=== PATIENT | female | born 1945 | race Caucasian/White ===

== ENCOUNTER 2018-08-11 15:57 | Outpatient (REF) | payer MEDICARE, BC, SELFPAY ==
--- NOTE | 2018-08-11 14:30 | PAPFT_PTH ---
PATIENT: Gwendolyn Scott [id number] AGE/SX: 73/F ROOM: RE08/11/[address]: Crystal Maza : 1945 BED: DIS: 08/11/2018 SPEC #: [id number] RECD: 08/12/18 12:58 STATUS: GLENROY SHERMAN #: [id number] TIFFANY: 08/11/18 14:[address]: Crystal Maza DEPT: [facility] Cytology RECD BY: Nura Pastor Tissues: 1 - CX/ENDOCX FOR PAP SMEARS Procedures: PAP THIN PREP/[facility] Screening Comments: [id number]
== END 2018-08-11 16:17 ==
LOC: NCHCN 15:57
PROVIDERS: PCP Internal Medicine; Referring Provider Nurse Practitioner Family; Visit Provider Nurse Practitioner Family
DX: R10.2 Pelvic and perineal pain (principal); Z12.4 Encounter for screening for malignant neoplasm of cervix
CPT/HCPCS: 88142; 87086

== ENCOUNTER 2019-04-21 14:26 | Outpatient (REF) | payer MEDICARE, BC, SELFPAY ==
[2019-04-21 21:33] LABS: TSH 0.98 uIU/mL (0.358-3.74); Vitamin B12 715 pg/mL (193-986)
[2019-04-26 15:54] LABS: 1,25-Dihydroxyvitamin D 58 pg/mL (18-78)
== END 2019-04-21 14:46 ==
LOC: NCHCN 14:26
PROVIDERS: PCP Internal Medicine; Visit Provider Nurse Practitioner Psychiatric/Mental Health
DX: E55.9 Vitamin D deficiency, unspecified (principal); F39 Unspecified mood [affective] disorder
CPT/HCPCS: 82607; 82652; 84443

== ENCOUNTER 2021-04-24 16:03 | Outpatient (REF) | payer MEDICARE, BC, SELFPAY ==
[2021-04-24 19:23] LABS: Bilirubin Negative (Negative); Blood Trace-intact (Negative); Clarity Clear (Clear); Glucose Negative (Negative); Ketones Negative (Negative); Leukocyte Esterase Negative (Negative); Nitrite Negative (Negative); Specific Gravity 1.015 (1.005-1.025); Urobilinogen 0.2 EU/dL (Up TO 0.2); pH 6.5 (5-8)
[2021-04-24 20:01] LABS: Epithelial Cells Many HPF (Negative); RBC Negative HPF (0-2); WBC Negative HPF (0-5)
[2021-04-24 20:02] LABS: Bacteria Moderate HPF (Negative); C & S Indicated? No/Sq. Contamination; Casts Negative LPF (Negative); Crystals Negative HPF (Negative); Mucus Negative (Negative)
== END 2021-04-24 16:04 | disposition home or self-care (01) ==
LOC: NCHCN 16:03
PROVIDERS: PCP Internal Medicine; Visit Provider Nurse Practitioner Family
DX: R31.29 Other microscopic hematuria (principal)
CPT/HCPCS: 81003; 81015; 87480; 87510; 87660

== ENCOUNTER 2022-01-24 16:17 | Outpatient (REF) | payer MEDICARE, BC, SELFPAY ==
[2022-01-24 19:18] LABS: ESR 14 mm/hr (0-30)
[2022-01-24 19:50] LABS: ALT 15 U/L (14-59); AST 14 U/L (15-37); Albumin 3.9 g/dL (3.4-5.0); Alkaline Phosphatase 91 U/L (46-116); Anion Gap 11.3 mmol/L (3-11); BUN 15 mg/dL (7-18); Bilirubin, Total 0.4 mg/dL (0.2-1.0); C-Reactive Protein 0.13 mg/dL (0.0-0.3); CO2 23.7 mmol/L (21.0-32.0); CREATININE 0.8 mg/dL (0.55-1.02); Chloride 103 mmol/L (98-107); Glucose 98 mg/dL (74-106); Potassium 4.1 mmol/L (3.5-5.1); Sodium 138 mmol/L (136-145); Total Protein 7.5 g/dL (6.4-8.2)
[2022-01-24 20:56] LABS: Ferritin 208 ng/mL (8-252); Vitamin B12 385 pg/mL (193-986)
[2022-01-24 21:14] LABS: Iron 113 ug/dL (50-170); Total Iron Binding Capacity 324 ug/dL (250-450); Transferrin Sat 35 % (15-50)
== END 2022-01-24 16:18 | disposition home or self-care (01) ==
LOC: NCHCN 16:17
PROVIDERS: PCP Internal Medicine; Visit Provider Physician Assistant
DX: M25.511 Pain in right shoulder (principal)
CPT/HCPCS: 80053; 85652; 82607; 82728; 83540; 83550; 86140

== ENCOUNTER 2022-04-17 14:11 | Outpatient (REF) | payer MEDICARE, BC, SELFPAY ==
[2022-04-23 07:29] LABS: 2-OH-Ethyl-Flurazepam Negative ng/mL (Cutoff: 10); 7-NH-Clonazepam 248 ng/mL (Cutoff: 10); 7-NH-Flunitrazepam Negative ng/mL (Cutoff: 10); Alpha OH-Alprazolam Negative ng/mL (Cutoff: 10); Alpha-OH Midazolam Negative ng/mL (Cutoff: 10); Alpha-OH-Triazolam Negative ng/mL (Cutoff: 10); Alprazolam Negative ng/mL (Cutoff: 10); Benzodiazepines Interpretation Positive.; Chlordiazepoxide Negative ng/mL (Cutoff: 10); Clobazam Negative ng/mL (Cutoff: 10); Clonazepam Negative ng/mL (Cutoff: 10); Diazepam Negative ng/mL (Cutoff: 10); Flurazepam Negative ng/mL (Cutoff: 10); Lorazepam Negative ng/mL (Cutoff: 10); Midazolam Negative ng/mL (Cutoff: 10); N-Desmethylclobazam Negative ng/mL (Cutoff: 10); Prazepam Negative ng/mL (Cutoff: 10); Temazepam Negative ng/mL (Cutoff: 10); Triazolam Negative ng/mL (Cutoff: 10); Zolpidem Carboxylic acid Negative ng/mL (Cutoff: 10)
== END 2022-04-17 14:12 | disposition home or self-care (01) ==
LOC: NCHCN 14:11
PROVIDERS: PCP Internal Medicine; Visit Provider Physician Assistant
DX: F41.1 Generalized anxiety disorder (principal); Z51.81 Encounter for therapeutic drug level monitoring
CPT/HCPCS: 80346

== ENCOUNTER 2023-08-06 20:03 | Outpatient (REF) | payer MEDICARE, BC, SELFPAY | END 2023-08-06 20:04 | disposition home or self-care (01) | LOC: NCHCN 20:03 | PROVIDERS: PCP Internal Medicine; Visit Provider Physician Assistant | DX: N39.0 Urinary tract infection, site not specified (principal); R82.79 Other abnormal findings on microbiological examination of urine | CPT/HCPCS: 87077; 87086; 87186 ==

== ENCOUNTER 2023-10-02 14:11 | Outpatient (REF) | payer MEDICARE, BC, SELFPAY ==
[2023-10-02 19:56] LABS: HCT 44.2 % (36.0-46.0); HGB 14.3 g/dL (11.2-15.7); MCH 27.9 pg (27.0-33.0); MCHC 32.4 % (32.0-36.0); MCV 86 fL (80-95); MPV 8.9 fL (8.0-11.0); Platelet Count 330 10^3/uL (130-400); RBC 5.12 10^6/uL (3.93-5.22); RDW 13.2 % (11.7-14.6); RDW-SD 41.3 fL; WBC 8.78 10^3/uL (4.4-10.8)
[2023-10-02 20:16] LABS: ALT 20 U/L (14-59); AST 23 U/L (15-37); Albumin 3.7 g/dL (3.4-5.0); Alkaline Phosphatase 80 U/L (46-116); BUN 15 mg/dL (7-18); Bilirubin, Total 0.2 mg/dL (0.2-1.0); CREATININE 0.7 mg/dL (0.55-1.02); Calcium 9.4 mg/dL (8.5-10.1); Chloride 107 mmol/L (98-107); Estimated GFR 89.02 (mL/min/1.73m2); Glucose 111 mg/dL (74-106); Sodium 140 mmol/L (136-145); Total Protein 7.8 g/dL (6.4-8.2)
== END 2023-10-02 14:12 | disposition home or self-care (01) ==
LOC: NCHCN 14:11
PROVIDERS: PCP Internal Medicine; Visit Provider Physician Assistant
DX: E78.5 Hyperlipidemia, unspecified (principal); K21.9 Gastro-esophageal reflux disease without esophagitis; F41.1 Generalized anxiety disorder
CPT/HCPCS: 80053; 85027

== ENCOUNTER 2024-03-24 14:39 | Outpatient (REF) | payer MEDICARE, BC, SELFPAY ==
[2024-03-24 21:57] LABS: HCT 44.9 % (36.0-46.0); HGB 14.3 g/dL (11.2-15.7); MCH 27.7 pg (27.0-33.0); MCHC 31.8 % (32.0-36.0); MCV 87 fL (80-95); MPV 8.9 fL (8.0-11.0); Platelet Count 370 10^3/uL (130-400); RBC 5.16 10^6/uL (3.93-5.22); RDW 13.5 % (11.7-14.6); RDW-SD 42.9 fL; WBC 7.37 10^3/uL (4.4-10.8)
[2024-03-24 22:43] LABS: Hemoglobin A1C 5.7 % (<5.7); TSH 1.49 uIU/Ml (0.36-3.74); Vitamin B12 673 pg/mL (193-986)
[2024-03-24 22:45] LABS: Folate > 20.0 ng/mL (8.6-20.0)
[2024-03-24 23:35] LABS: Vitamin D 25 Total 22.4 ng/mL (30-100)
== END 2024-03-24 14:40 | disposition home or self-care (01) ==
LOC: NCHCN 14:39
PROVIDERS: PCP Internal Medicine; Visit Provider Internal Medicine
DX: R63.4 Abnormal weight loss (principal); R42 Dizziness and giddiness
CPT/HCPCS: 80186; 82306; 85027; 82607; 82746; 83036; 84443

== ENCOUNTER 2024-12-22 15:33 | Outpatient (REF) | payer MEDICARE, BC, SELFPAY ==
--- OUTSIDE RECORDS SUMMARY | 2024-12-22 15:38 | XMS_ITS | Clinical Summary ---
Author Organization [facility] Address [address] [place] [address] Care Team Providers Care Fire Suppression Captain Name Role Phone Dylon Man MD Primary Care Provider [phone] Social History Tobacco Use Types Packs/Day Years Used Date Smoking Tobacco: Never Assessed Interpersonal Safety Answer Date Record ed Physically Hurt Never 06/25/2020 Verbally Threaten Not on file 06/25/2020 Comments Unknown Sex and Gender Information Value Date Recorded Sex Assigned at Not on file Legal Sex Female 18:03 EST Gender Identity Not on file Sexual Orientation Not on file Plan of Treatment Health Maintenance Due Date Last Done Comments Hepatitis C Screen 1945 Fall Risk Screening 2011 RSV Immunization ( o r 60+ Years) (1 - 1-dose 75+ series) 2021 COVID-19 Vaccine ( season) 2024 Care Teams Fire Suppression Captain Relationship Specialty Start Date End Date Dylon Man MD [address] [place] [address] PCP - General 12/04/10
--- OUTSIDE RECORDS SUMMARY | 2024-12-22 15:38 | XMS_ITS | Encounter Summary ---
Author Organization [facility] Address [address] [place] [address] Care Team Providers Care Assistant Field Hockey Coach Name Role Phone Dylon Man MD Primary Care Provider [phone] Encounter Details Date Type Department Care Team (Late st Contact Info) Description 05/15/2015 Results Only [facility] [phone] Jayne Dotson MD [address] [place] [address] [address] [place], [place] [id number] Social History Tobacco Use Types Packs/Day Years Used Date Smoking Tobacco: Never Assessed Comments Unknown Sex and Gender Information Value Date Recorded Sex Assigned at Not on file Legal Sex Female 18:03 EST Gender Identity Not on file Sexual Orientation Not on file documented as of this encounter Plan of Treatment Not on file documented as of this encounter Procedures Procedure Name Priority Date/Time Associated Diagnosis Comments SURGICAL PATHOLOGY Routine 05/15/2015 8:58 EDT documented in this encounter Results * SURGICAL PATHOLOGY (05/15/2015 8:58 EDT) Pathology Report: SURGICAL PATHOLOGY REPORT Reports generated via electronic interface contain original data; however they are lacking the format of the original report. Caution should be taken when reading/interpret ing unformatted reports. Name: ? DAMION SUMNER ? Accession #: ? [id number] ? : ? 1945 (Age: 70) ??F ? Collect Date: ? 05/15/2015 ? Location: ? [facility] ? Receive Date: ? 05/16/2015 ? Provider: JAYNE DOTSON MD Copy to: ? Final Pathologic Diagnosis: ENDOMETRIUM, BIOPSY: - ??Endometrial polyp, hyperplastic type. - ??No cytologic atypia identified. Document reviewed and electronically signed by: GILBERT RIBERA MD Report ??Date: 05/17/2015 16:20 By the signature above, the attending physician certifies that he/she has personally conducted a gross and/or microscopic examination of the described specimens and rendered or confirmed the above diagnosis. Specimen(s) Received: Endometrium Clinical History: Thickened endometrium; postmenopausal bleeding Gross Description: ? Received in formalin labelled with proper patient identification (initials G, L) and endometrium is an aggregate of alejandro, focally light brown tissue admixed with a small amount of clear viscous material (2.0 x 1.0 x 0.2 cm). Submitted in toto in 1. Piotr Escobar 05/16/2015 11:55 AM End of Report [facility] 05/15/2015 8:58 EDT 05/16/2015 8:58 EDT us Jayne Dotson MD PATHOLOGY ORDERABLES Final Resul t [facility] [address] [place] [address] documented in this encounter Visit Diagnoses Not on filedocumented in this encounter Care Teams Assistant Field Hockey Coach Relationship Specialty Start Date End Date Dylon Man MD [address] [place] [address] PCP - General 12/04/10 documented as of this encounter
--- OUTSIDE RECORDS SUMMARY | 2024-12-22 15:38 | XMS_ITS | Encounter Summary ---
Author Organization [facility] Address [address] [place] [address] Care Team Providers Care Court Reporter Name Role Phone Unavailable Primary Care Provider Unavailabl e Encounter Details Date Type Department Care Team (Late st Contact Info) Description 02/07/2003 Results Only [facility] - Maple conversion [address] [place] [address] Jayne Dotson MD [address] [place] [address] [address] [place] [address] Social History Tobacco Use Types Packs/Day Years [...] Procedure Name Priority Date/Time Associated Diagnosis Comments CYTOPATHOLOGY Routine 02/07/2003 0:00 EST documented in this encounter Results * CYTOPATHOLOGY (02/07/2003 0:00 EST) Pathology Report: CYTOPATHOLOGY REPORT Reports generated via electronic interface contain original data; however they are lacking the format of the original report. Caution should be taken when reading/interpreti ng unformatted reports. Name: ? DAMION SUMNER ? Accession #: ? [id number] : ? 1945 (Age: 57) ??F ?Collect Date: ? 02/07/2003 Location: ? [facility] ? Receive Date: ? 02/09/2003 Provider: ?JAYNE DOTSON MD Copy to: ? Specimen/Source: ?ThinPrep Pap Test, Cervix/Endocervix Last Menstrual Period: ? age 49 Hormonal/Contracep tive Status: ? Yes Other: ? HPVA - HPV testing requested if ASC-US on the current ThinPrep Pap test. ? SPECIMEN ADEQUACY ? Satisfactory for Evaluation - transformation zone component present GENERAL CATEGORIZATION ? Negative for Intraepithelial Lesion or Malignancy ? Document reviewed and electronically signed by: ? Go Tate, ALEA(ASCP) ? Report Date: ??02/11/2003 13:37 End of Report [facility] 02/07/2003 02/09/2003 us Jayne Dotson MD PATHOLOGY ORDERABLES Final Resul t [facility] [address] [place] [address] documented in this encounter Visit Diagnoses Not on filedocumented in this encounter
--- OUTSIDE RECORDS SUMMARY | 2024-12-22 15:38 | XMS_ITS | Encounter Summary ---
Author Organization [facility] Address [address] [place] [address] Care Team Providers Care Circular Stuffer Name Role Phone Unavailable Primary Care Provider Unavailabl e Encounter Details Date Type Department Care Team (Late st Contact Info) Description 10/27/2009 Orders Only [facility] Laboratory Services - [facility] ([facility] [place] [address] [place] [address] Juliocesar Dotson MD [address] [place] [address] [address] [place] [address] Social History Tobacco Use Types [...] Procedure Name Priority Date/Time Associated Diagnosis Comments HPV DETECTION, HIGH RISK TYPES Routine 10/27/2009 16:38 EST CYTOPATHOLOGY Routine 10/27/2009 0:00 EST documented in this encounter Results * HUMAN PAPILLOMA VIRUS DNA TEST (10/27/2009 16:38 EST) Specimen Description Cervix, ThinPrep vial [facility] Result Negative for HPV types 16, 18, 31, 33, 35, 39, 45, 51, 52, 56, 58, 59, and 68. [facility] Report Status Final 11/15/2009 [facility] 10/27/2009 16:3 8 EST 11/06/2009 16:38 EST us Juliocesar Dotson MD MICROBIOLOGY - GENERAL ORDERABLE S Final Result [facility] [address] [place] [address] * CYTOPATHOLOGY (10/27/2009 0:00 EST) Pathology Report: CYTOPATHOLOGY REPORT ? Reports generated via electronic interface contain original data; ? however they are lacking the format of the original report. ? Caution should be taken when reading/interpreti ng unformatted reports. ? Name: ? DAMION SUMNER ? Accession #: ? [id number] ? : ? 1945 (Age: 64) ??F ?Collect Date: ? 10/27/2009 ? Location: ? [facility] ? Receive Date: ? 10/30/2009 ? Provider: ?PETER CHENTE MD ? Copy to: ? Specimen/Source: ?Pap Test, Cervix/Endocervix, ThinPrep Imaging System ? with manual evaluation ? Last Menstrual Period: ? 1996 ? Other: ? HPVDX - HPV testing requested regardless of diagnosis on current ThinPrep Pap ?? test. ? SPECIMEN ADEQUACY ? Satisfactory for Evaluation ? - transformation zone component present ? - scant squamous epithelial component secondary to excessive blood ? GENERAL CATEGORIZATION ? Negative for Intraepithelial Lesion or Malignancy ? Document reviewed and electronically signed by: ? Jordan Claros, MD ? Report Date: ??11/06/2009 11:34 ? End of Report ? [facility] 10/27/2009 10/30/2009 us Juliocesar Dotson MD PATHOLOGY ORDERABLES Final Resul t [facility] [address] [place] [address] documented in this encounter Visit Diagnoses Not on filedocumented in this encounter
--- OUTSIDE RECORDS SUMMARY | 2024-12-22 15:38 | XMS_ITS | Encounter Summary ---
Author Organization [facility] Address [address] [place] [address] Care Team Providers Care Service Car Driver Name Role Phone Unavailable Primary Care Provider Unavailabl e Encounter Details Date Type Department Care Team (Late st Contact Info) Description 03/22/2004 Results Only [facility] - Maple conversion [address] [place] [address] Jayne Dotson MD [address] [place] [address] [address] [place] [address] Social History Tobacco Use Types [...] Priority Date/Time Associated Diagnosis Comments CYTOPATHOLOGY Routine 03/22/2004 0:00 EDT documented in this encounter Results * CYTOPATHOLOGY (03/22/2004 0:00 EDT) Pathology Report: CYTOPATHOLOGY REPORT Reports generated via electronic interface contain original data; however they are lacking the format of the original report. Caution should be taken when reading/interpreti ng unformatted reports. Name: ? DAMION SUMNER ? Accession #: ? [id number] : ? 1945 (Age: 59) ??F ?Collect Date: ? 03/22/2004 Location: ? [facility] ? Receive Date: ? 03/26/2004 Provider: ?JAYNE DOTSON MD Copy to: ? Specimen/Source: ?ThinPrep Pap Test, Cervix/Endocervix Last Menstrual Period: ? Age 49 Other: ? HPVA - HPV testing requested if ASC-US on the current ThinPrep Pap test. ? SPECIMEN ADEQUACY ? Satisfactory for Evaluation - transformation zone component present GENERAL CATEGORIZATION ? Negative for Intraepithelial Lesion or Malignancy ? Document reviewed and electronically signed by: ? ALEA Tobin(ASCP) ? Report Date: ??03/30/2004 08:09 End of Report [facility] 03/22/2004 03/26/2004 us Jayne Dotson MD PATHOLOGY ORDERABLES Final Resul t [facility] [address] [place] [address] documented in this encounter Visit Diagnoses Not on filedocumented in this encounter
--- OUTSIDE RECORDS SUMMARY | 2024-12-22 15:38 | XMS_ITS | Encounter Summary ---
Author Organization [facility] Address [address] [place] [address] Care Team Providers Care Pumper Head Name Role Phone Dylon Man MD Primary Care Provider [phone] Encounter Details Date Type Department Care Team (Late st Contact Info) Description 08/23/2013 Results Only [facility] [phone] Tony Pal, ERNESTO [address] [place] [address] Social History Tobacco Use Types Packs/Day Years [...] Procedure Name Priority Date/Time Associated Diagnosis Comments PAP TEST- RESULT ONLY Routine 08/23/2013 0:00 EDT documented in this encounter Results * PAP TEST- RESULT ONLY (08/23/2013 0:00 EDT) Pathology Report: CYTOPATHOLOGY REPORT Reports generated via electronic interface contain original data; however they are lacking the format of the original report. Caution should be taken when reading/interpreti ng unformatted reports. Name: ? DAMION SUMNER ? Accession #: ? [id number] ? : ? 1945 (Age: 68) ??F ?Collect Date: ? 08/23/2013 ? Location: ? [facility] ? Receive Date: ? 08/25/2013 ? Provider: TONY MILLER Copy to: ? Final Report SPECIMEN ADEQUACY ? Satisfactory for Evaluation - transformation zone component present GENERAL CATEGORIZATION ? Negative for Intraepithelial Lesion or Malignancy ?? Menstrual/Pregnanc y Status: ??Post Menopausal Specimen/Source: ??Pap Test, Cervix, ThinPrep Imaging System with manual evaluation Document reviewed and electronically signed by: ? Rebecca Rivas, [place](ASCP) ? Report ??Date: 08/30/2013 08:26 HPV with Pap Test ? Date Ordered: ? 08/30/2013 ? Status: ?? Signed Out ?Date Complete: ? 09/01/2013 ? By: ??System Interface ? Date Reported: ? 09/01/2013 ? Interpretation RESULT: Negative for HPV. No E6 or E7 mRNA is detected from HPV types 16,18,31,33,35, 39,45,51,52,56,58, 59,66, and 68 by logistics loss prevention manager mediated amplification. Comments Document reviewed and electronically signed by: ? System Interface ? Report date: 09/01/2013 By the signature above, the attending physician certifies that he/she has personally conducted a gross and/or microscopic examination of the described specimens and rendered or confirmed the above diagnosis. End of Report [facility] 08/23/2013 08/25/2013 us Tony Pal PA-C PATHOLOGY ORDERABLES Final R esult [facility] [address] [place] [address] documented in this encounter Visit Diagnoses Not on filedocumented in this encounter Care Teams Pumper Head Relationship Specialty Start Date End Date Dylon Man MD [address] [place] [address] PCP - General 12/04/10 documented as of this encounter
--- OUTSIDE RECORDS SUMMARY | 2024-12-22 15:38 | XMS_ITS | Encounter Summary ---
Author Organization [facility] Address [address] [place] [address] Care Team Providers Care Banquet Pilot Name Role Phone Unavailable Primary Care Provider Unavailabl e Encounter Details Date Type Department Care Team (Late st Contact Info) Description 02/10/2006 Results Only [facility] - Maple conversion [address] [place] [address] Jayne Dotson MD [address] [place] [address] [address] [place] [address] Social History Tobacco Use Types [...] Priority Date/Time Associated Diagnosis Comments CYTOPATHOLOGY Routine 02/10/2006 0:00 EST documented in this encounter Results * CYTOPATHOLOGY (02/10/2006 0:00 EST) Pathology Report: CYTOPATHOLOGY REPORT Reports generated via electronic interface contain original data; however they are lacking the format of the original report. Caution should be taken when reading/interpreti ng unformatted reports. Name: ? DAMION SUMNER ? Accession #: ? [id number] : ? 1945 (Age: 60) ??F ?Collect Date: ? 02/10/2006 Location: ? [facility] ? Receive Date: ? 02/12/2006 Provider: ?JAYNE DOTSON MD Copy to: ? Specimen/Source: ?ThinPrep Pap Test, Cervix/Endocervix, processed on NXT-ID ThinPrep Imaging System, with manual evaluation Last Menstrual Period: ? 1994 Other: ? HPVA - HPV testing requested if ASC-US on the current ThinPrep Pap test. ? SPECIMEN ADEQUACY ? Satisfactory for Evaluation - transformation zone component present GENERAL CATEGORIZATION ? Negative for Intraepithelial Lesion or Malignancy ? Document reviewed and electronically signed by: ? ALEA Tobin(ASCP) ? Report Date: ??02/13/2006 13:34 End of Report [facility] 02/10/2006 02/12/2006 us Jayne Dotson MD PATHOLOGY ORDERABLES Final Resul t [facility] [address] [place] [address] documented in this encounter Visit Diagnoses Not on filedocumented in this encounter
--- OUTSIDE RECORDS SUMMARY | 2024-12-22 15:38 | XMS_ITS | Encounter Summary ---
Author Organization [facility] Address [address] [place] [address] Care Team Providers Care Rn Support Services Name Role Phone Unavailable Primary Care Provider Unavailabl e Encounter Details Date Type Department Care Team (Late st Contact Info) Description 11/30/2010 Results Only [facility] Laboratory Services - [facility] ([facility] [place] [address] [place], [place] [address] Valeria Appiah PA [address] [place] [address] Social History Tobacco Use Types Packs/Day Years [...] Date/Time Associated Diagnosis Comments SURGICAL PATHOLOGY Routine 11/30/2010 0:00 EST documented in this encounter Results * SURGICAL PATHOLOGY (11/30/2010 0:00 EST) Pathology Report: SURGICAL PATHOLOGY REPORT ? Reports generated via electronic interface contain original data; ? however they are lacking the format of the original report. ? Caution should be taken when reading/interpreting unformatted reports. ? Name: ? TAISHA, DAMION F ? Accession #: ? [id number] ? : ? 1945 (Age: 65) ??F ? Collect Date: ? 11/30/2010 ? Location: ? [facility] ? Receive Date: ? 12/01/2010 ? Provider: VALERIA LONTINE PA ? Copy to: RASHEED LEE MD ? Final Pathologic Diagnosis: ? Skin of chest, anterior upper, punch biopsy: ? - Lichenoid keratosis (lichen planus-like keratosis). ? Microscopic Description: ? There is mild compact ortho- and parakeratosis. ??The epidermis is of ? variable thickness with areas of relative rete effacement. ??The dermis is marked by a lichenoid lymphomononuclear inflammatory infiltrate that partially obscures the dermal-epidermal interface. ??The infiltrate is associated with vacuolar ? change of the basal keratinocytes and scattered necrotic cells. ??Melanophages ?? are present in the superficial dermis. ??(Dr. Garcia)/chelsi ? Document reviewed and electronically signed by: ? PEDRITO GARCIA MD ? Report ??Date: 12/04/2010 16:39 ? By the signature above, the attending physician certifies that he/she has ? personally conducted a gross and/or microscopic examination of the described ? specimens and rendered or confirmed the above diagnosis. ? Specimen(s) Received: ? Anterior upper chest punch bx ? Clinical History: ? 1.5 cm erythematous scaly lesion anterior upper chest ? Gross Description: ? Received in formalin labelled Taisha, Damion and lesion anterior upper ?? chest is a 0.6 cm in diameter by 0.3 cm in thickness punch biopsy of alejandro-white, slightly roughened skin. ??The specimen is bisected and entirely submitted in a ?? single cassette. (Amber Dwyer)/[facility] ? End of Report ? [facility] 11/30/2010 12/01/2010 8:1 7 EST us Valeria MILLER PATHOLOGY ORDERABLES Final Resu lt [facility] [address] [place] [address] documented in this encounter Visit Diagnoses Not on filedocumented in this encounter
--- OUTSIDE RECORDS SUMMARY | 2024-12-22 15:38 | XMS_ITS | Encounter Summary ---
Author Organization [facility] Address [address] [place] [address] Care Team Providers Care Train Station Server Name Role Phone Dylon Man MD Primary Care Provider [phone] Encounter Details Date Type Department Care Team (Late st Contact Info) Description 08/11/2018 Results Only [facility] [phone] Mee Maza, STONE GANG SAWYER [address] [place] [address] Social History Tobacco Use Types Packs/Day Years [...] Diagnosis Comments PAP TEST- RESULT ONLY Routine 08/11/2018 0:00 EDT documented in this encounter Results * PAP TEST- RESULT ONLY (08/11/2018 0:00 EDT) Pathology Report: CYTOPATHOLOGY REPORT Reports generated via electronic interface contain original data; however they are lacking the format of the original report. Caution should be taken when reading/interpreti ng unformatted reports. Name: ? DAMION SUMNER ? Accession #: ? [id number] : ? 1945 (Age: 73) ??F ?Collect Date: ? 08/11/2018 Location: ? [facility] ? Receive Date: ? 08/13/2018 Provider: ?MEE MAZA [employer] G[employer] SAWYER Copy to: ? Specimen/Source: ?Pap Test, Vagina, ThinPrep Imaging System with manual evaluation Last Menstrual Period: ? Treatment History: ? Hysterectomy: total 01/07/18,s/p Other: ? Additional clinical information: c/o ongoing vaginal and pelvic pain ,check vaginal pathology ? SPECIMEN ADEQUACY ? Satisfactory for Evaluation - assessment of transformation zone component not applicable ( e.g. atrophy, vaginal sample, hysterectomy) GENERAL CATEGORIZATION ? Negative for Intraepithelial Lesion or Malignancy ? Document reviewed and electronically signed by: ? Reanna Castañeda [facility](ASCP) ? Report Date: ??08/20/2018 12:45 End of Report [facility] 08/11/2018 08/13/2018 Mee Maza NP PATHOLOGY ORDERABLES Final Res ult [facility] [address] [place] [address] documented in this encounter Visit Diagnoses Not on filedocumented in this encounter Care Teams Train Station Server Relationship Specialty Start Date End Date Dylon Man MD [address] [place] [address] PCP - General 12/04/10 documented as of this encounter
--- OUTSIDE RECORDS SUMMARY | 2024-12-22 15:38 | XMS_ITS | Encounter Summary ---
Author Organization [facility] Address [address] [place] [address] Care Team Providers Care Street Engineer Name Role Phone Dylon Man MD Primary Care Provider Encounter Details Date Type Department Care Team (Latest Contact Info) Description 01/12/2018 9:43 EST - 01/12/2018 23:59 EST Hospital Encounter [address] [address] Unknown, Provider, MD Discharge Disposition: Home or Self Care Social History Tobacco Use Types Packs/Day Years Used Date Smoking Tobacco: Never Assessed Comments Unknown Sex and Gender Information Value Date Recorded Sex Assigned at Not on file Legal Sex Female 18:03 EST Gender Identity Not on file Sexual Orientation Not on file documented as of this encounter Discharge Disposition Disposition Code Departure Means Destination Home or Self Intermediate documented in this encounter Plan of Treatment Not on file documented as of this encounter Visit Diagnoses Not on filedocumented in this encounter Care Teams Street Engineer Relationship Specialty Start Date End Date Dylon Man MD [address] [place] [address] PCP - General 12/04/10 documented as of this encounter
--- OUTSIDE RECORDS SUMMARY | 2024-12-22 15:38 | XMS_ITS | Encounter Summary ---
Author Organization [facility] Address [address] [place] [address] Care Team Providers Care Sewer Connector Name Role Phone Unavailable Primary Care Provider Unavailabl e Encounter Details Date Type Department Care Team (Late st Contact Info) Description 08/01/2010 Results Only [facility] Laboratory Services - [facility] ([facility] [place]) [address] [place], [place] [address] Ras Shin, OPAL [address] [place] [address] Social History Tobacco Use Types Packs/Day Years [...] Priority Date/Time Associated Diagnosis Comments CYTOPATHOLOGY Routine 08/01/2010 0:00 EDT documented in this encounter Results * CYTOPATHOLOGY (08/01/2010 0:00 EDT) Pathology Report: CYTOPATHOLOGY REPORT ? Reports generated via electronic interface contain original data; ? however they are lacking the format of the original report. ? Caution should be taken when reading/interpreti ng unformatted reports. ? Name: ? DAMION SUMNER ? Accession #: ? [id number] ? : ? 1945 (Age: 65) ??F ?Collect Date: ? 08/01/2010 ? Location: ? [facility] ? Receive Date: ? 08/03/2010 ? Provider: ?RAS SHIN NP ? Copy to: ?RASHEED MEEKAU MD ? Specimen/Source: ?Pap Test, Cervix, ThinPrep Imaging System with manual ?? evaluation ? Last Menstrual Period: ? Menstrual/Pregnanc y Status: ? Menopausal ? Infection History: ? Bacterial vaginosis ? Other: ? HPVA - HPV testing requested if ASC-US on the current ThinPrep Pap test. ? SPECIMEN ADEQUACY ? Satisfactory for Evaluation ? - transformation zone component present ? GENERAL CATEGORIZATION ? Negative for Intraepithelial Lesion or Malignancy ? Document reviewed and electronically signed by: ? Thelma Verville,CT(ASCP) ? Report Date: ??08/06/2010 14:21 ? End of Report ? [facility] 08/01/2010 08/03/2010 us Ras Shin BODY SHOP ESTIMATOR PATHOLOGY ORDERABLES Final R esult [facility] [address] [place] [address] documented in this encounter Visit Diagnoses Not on filedocumented in this encounter
--- OUTSIDE RECORDS SUMMARY | 2024-12-22 15:38 | XMS_ITS | Encounter Summary ---
Author Organization [facility] Address [address] [place] [address] Care Team Providers Care Program Director/Traffic Director Name Role Phone Unavailable Primary Care Provider Unavailabl e Encounter Details Date Type Department Care Team (Late st Contact Info) Description 02/04/2002 Results Only [facility] - Maple conversion [address] [place] [address] Jayne Dotson MD [address] [place] [address] [address] [place] [address] Social History Tobacco Use Types [...] Priority Date/Time Associated Diagnosis Comments CYTOPATHOLOGY Routine 02/04/2002 0:00 EST documented in this encounter Results * CYTOPATHOLOGY (02/04/2002 0:00 EST) Pathology Report: CYTOPATHOLOGY REPORT Reports generated via electronic interface contain original data; however they are lacking the format of the original report. Caution should be taken when reading/interpreti ng unformatted reports. Name: ? DAMION SUMNER ? Accession #: ? [id number] : ? 1945 (Age: 56) ??F ?Collect Date: ? 02/04/2002 Location: ? [facility] ? Receive Date: ? 02/08/2002 Provider: ?JYANE DOTSON MD Copy to: ? Specimen/Source: ?ThinPrep Pap Test, Cervix/Endocervix Last Menstrual Period: ? Age 49 Hormonal/Contracep tive Status: ? Yes Other: ? Client ID#: [id number] ? SPECIMEN ADEQUACY ? Satisfactory for Evaluation - transformation zone component present GENERAL CATEGORIZATION ? Negative for Intraepithelial Lesion or Malignancy ? Document reviewed and electronically signed by: ? Genevieve Uribe, SCT(ASCP) ? Report Date: ??02/11/2002 11:53 End of Report [facility] 02/04/2002 02/08/2002 us Jayne Dotson MD PATHOLOGY ORDERABLES Final Resul t [facility] [address] [place] [address] documented in this encounter Visit Diagnoses Not on filedocumented in this encounter
--- OUTSIDE RECORDS SUMMARY | 2024-12-22 15:38 | XMS_ITS | Encounter Summary ---
Author Organization [facility] Address [address] [place] [address] Care Team Providers Care Senior Quality Assurance Specialist Name Role Phone Dylon Man MD Primary Care Provider [phone] Encounter Details Date Type Department Care Team (Late st Contact Info) Description 01/07/2018 Results Only [facility]- PRISM [phone] Jayne Dotson MD [address] [place] [address] [address] [place], [place] [address] Social History Tobacco Use Types Packs/Day Years [...] Date/Time Associated Diagnosis Comments SURGICAL PATHOLOGY Routine 01/07/2018 8:53 EST documented in this encounter Results * SURGICAL PATHOLOGY (01/07/2018 8:53 EST) Pathology Report: SURGICAL PATHOLOGY REPORT Reports generated via electronic interface contain original data; however they are lacking the format of the original report. Caution should be taken when reading/interpret ing unformatted reports. Name: ? DAMION SUMNER ? Accession #: ? [id number] ? : ? 1945 (Age: 72) ??F ? Collect Date: ? 01/07/2018 ? Location: ? [facility] ? Receive Date: ? 01/08/2018 ? Provider: JAYNE DOTSON MD Copy to: ? Final Pathologic Diagnosis: UTERUS, CERVIX, RIGHT FALLOPIAN TUBE, AND RIGHT OVARY, HYSTERECTOMY AND RIGHT SALPINGO-OOPHOREC CHING: - Endometrium: ? - Benign hyperplastic polyp. - Flat endometrium with simple hyperplasia. See comment. - Myometrium: ? - Adenomyosis. ? - Leiomyomata. - Cervix: ? - No specific pathologic features. - Serosa: ? - Endometriosis and adhesions. - Fallopian tube and ovary: ? - Tubo-ovarian adhesions; otherwise no specific pathologic features. Comment: Focal cytologic atypia is present within the flat endometrium; however it is of insufficient size for a diagnosis of atypical hyperplasia. Dr. Logan Kumar 01/12/2018 1:37 PM Document reviewed and electronically signed by: LOGAN KUMAR MD Report ??Date: 01/12/2018 14:45 By the signature above, the attending physician certifies that he/she has personally conducted a gross and/or microscopic examination of the described specimens and rendered or confirmed the above diagnosis. Specimen(s) Received: Uterus, cervix, right tube and ovary Clinical History: Pelvic pain, thickened endometrium Gross Description: ? Received in formalin labelled with proper patient identification (initials G, L) and cervix, uterus, R tube and ovary is an intact, unopened uterus (62.0 g, 7.0 cm fundus to cervix x 5.5 cm cornu to cornu x 3.5 cm anterior to posterior), right ovary (1.7 x 1.2 x 0.9 cm) and right fallopian tube (5.2 cm in length x 0.3 cm in diameter). The posterior serosa is mostly smooth and alejandor-gamino. The serosa on the anterior side is roughened with scattered wispy, white adhesions. The cervix (2.2 cm in diameter) is covered by alejandro-gamino, granular ectocervical mucosa and has a slitlike os (1.1 cm). The endocervical canal (2.4 cm in length) is lined by pink-alejandro, granular to denuded mucosa. The endometrial cavity (2.0 cm cornu to cornu x 3.6 cm in length) is lined by soft pink-red endometrium (0.3 cm in maximum thickness). The posterior cavity contains a 3.5 x 1.2 x 0.7 cm pink-alejandro polyp. The polyp does not involve the underlying myometrium. The right ovary has a smooth alejandro-white to yellow cortical surface. Sectioning reveals alejandro-white to yellow cut surfaces. No masses or lesions are identified. The right fimbriated fallopian tube has a pale alejandro serosal surface. A central portion of pale yellow adipose tissue is attached to one side of the tube. Sectioning reveals a patent, unremarkable lumen. Innovation Analyst sections are submitted as follows: BLOCK VENEGAS 1- ??anterior cervix to lower uterine segment 2- ??posterior cervix to lower uterine segment 3-5- ??risk control field representative anterior endomyometrium 6- ??posterior endomyometrium with polyp attachment site 7-8- ??remainder of polyp 9-10- ??unremarkable posterior endomyometrium 11- ??risk control field representative right ovary 12-13- ??risk control field representative right fallopian tube, to include the bisected fimbria ANGELA Pedroza (ASCP) 01/08/2018 11:00 AM End of Report [facility] 01/07/2018 8:53 EST 01/08/2018 8:53 EST us Jayne Dotson MD PATHOLOGY ORDERABLES Final Resul t [facility] [address] [place] [address] documented in this encounter Visit Diagnoses Not on filedocumented in this encounter Care Teams Senior Quality Assurance Specialist Relationship Specialty Start Date End Date Dylon Man MD [address] [place] [id number] PCP - General 12/04/10 documented as of this encounter
--- OUTSIDE RECORDS SUMMARY | 2024-12-22 15:38 | XMS_ITS | Referral Summary ---
Author Organization [facility] Address [address] [place] [address] Care Team Providers Care Pharmacy Order Entry Technician Name Role Phone Dylon Man MD Primary Care Provider [phone] Social History Tobacco Use Types Packs/Day Years Used Date Smoking Tobacco: Never Assessed Interpersonal Safety Answer Date Record ed Physically Hurt Never 06/25/2020 Verbally Threaten Not on file 06/25/2020 Comments Unknown Sex and Gender Information Value Date Recorded Sex Assigned at Not on file Legal Sex Female 18:03 EST Gender Identity Not on file Sexual Orientation Not on file Plan of Treatment Not on file Care Teams Pharmacy Order Entry Technician Relationship Specialty Start Date End Date Dylon Man MD [address] [place] [address] PCP - General 12/04/10
--- OUTSIDE RECORDS SUMMARY | 2024-12-22 15:38 | XMS_ITS | Encounter Summary ---
Author Organization [facility] Address [address] [place] [address] Care Team Providers Care Public Health Officer Name Role Phone Dylon Man MD Primary Care Provider Encounter Details Date Type Department Care Team (Latest Contact Info) Description 05/15/2015 8:09 EDT - 05/15/2015 23:59 EDT Hospital Encounter [address] [address] Unknown, Provider, MD Discharge Disposition: Home or [...] Code Departure Means Destination Home or Self Half-Way documented in this encounter Plan of Treatment Not on file documented as of this encounter Visit Diagnoses Not on filedocumented in this encounter Care Teams Public Health Officer Relationship Specialty Start Date End Date Dylon Man MD [address] [place] [address] PCP - General 12/04/10 documented as of this encounter
--- OUTSIDE RECORDS SUMMARY | 2024-12-22 15:39 | XMS_ITS | Encounter Summary ---
Author Organization [facility] Address [address] [place] [address] Care Team Providers Care Cage Fighter Name Role Phone Unavailable Primary Care Provider Unavailabl e Encounter Details Date Type Department Care Team (Late st Contact Info) Description 01/22/2001 Results Only [facility] - Maple conversion [address] [place] [address] Jayne Dotson MD [address] [place] [address] [address] [place] [address] Social History Tobacco Use Types [...] Priority Date/Time Associated Diagnosis Comments CYTOPATHOLOGY Routine 01/22/2001 0:00 EST documented in this encounter Results * CYTOPATHOLOGY (01/22/2001 0:00 EST) Pathology Report: CYTOPATHOLOGY REPORT Reports generated via electronic interface contain original data; however they are lacking the format of the original report. Caution should be taken when reading/interpreti ng unformatted reports. Name: ? DAMION SUMNER ? Accession #: ? [id number] : ? 1945 (Age: 55) ??F ?Collect Date: ? 01/22/2001 Location: ? [facility] ? Receive Date: ? 01/26/2001 Provider: ?JAYNE DOTSON MD Copy to: ? Specimen/Source: ?ThinPrep Pap Test, Cervix/Endocervix Last Menstrual Period: ? Age 49 Hormonal/Contracep tive Status: ? Yes ? SPECIMEN ADEQUACY ? Satisfactory for evaluation. GENERAL CATEGORIZATION ? Within Normal Limits ? Document reviewed and electronically signed by: ? ALEA Chilel(ASCP)(IAC) ? Report Date: ??01/26/2001 16:49 End of Report [facility] 01/22/2001 01/26/2001 us Jayne Dotson MD PATHOLOGY ORDERABLES Final Resul t [facility] [address] [place] [address] documented in this encounter Visit Diagnoses Not on filedocumented in this encounter
--- OUTSIDE RECORDS SUMMARY | 2024-12-22 15:39 | XMS_ITS | Encounter Summary ---
Author Organization [facility] Address [address] [place] [address] Care Team Providers Care Elevator Service Technician Name Role Phone Unavailable Primary Care Provider Unavailabl e Encounter Details Date Type Department Care Team (Late st Contact Info) Description 02/11/2000 Results Only [facility] - Maple conversion [address] [place] [address] Jayne Dotson MD [address] [place] [address] [address] [place] [address] Social History Tobacco Use Types [...] Priority Date/Time Associated Diagnosis Comments CYTOPATHOLOGY Routine 02/11/2000 15:12 EST documented in this encounter Results * CYTOPATHOLOGY (02/11/2000 15:12 EST) Pathology Report: CYTOPATHOLOGY REPORT Reports generated via electronic interface contain original data; however they are lacking the format of the original report. Caution should be taken when reading/interpreti ng unformatted reports. Name: ? DAMION SUMNER ? Accession #: ? [id number] : ? 1945 (Age: 54) ??F ?Collect Date: ? 02/11/2000 Location: ?Receive Date: ? 02/11/2000 Provider: ?JAYNE DOTSON MD Copy to: ?JAYNE DOTSON MD ? Specimen/Source: ?Pap Smear (One Slide) Last Menstrual Period: ? GYNECOLOGIC ??CYTOPATHOLOGY ??REPORT Name: DAMION SUMNER ? FA : 1945 ?? 54Y F ?Client ID: ?? SS#: ? Clinician: JAYNE DOTSON MD ?? Location: [facility] ??Copy to: ?? Specimen: ?Pap Smear (One Slide) ? Source: Cervix/Endocervix ?Collected: 02/07/00 ? Received: 02/11/2000 ?LMP: Age 49 ? Hormone Therapy: Yes ? : No ? Radiation Therapy: No ?? Post : No ?Chemotherapy: No ?IUD: No ? Prev Abnormal Pap: No ?? Clinical Hx: ?(Blank [place] indicate information not provided on requisition) SPECIMEN ADEQUACY: ? Satisfactory For Evaluation ?? GENERAL CATEGORIZATION: ? WITHIN NORMAL LIMITS ? Reviewed And Electronically Signed By: ? Iggy Martinez, CT(ASCP) ? Report Date: ?? 02/15/2000 [id number] Archived Tests - Final Diagnosis Text Field: Clinical History : ? Document reviewed and electronically signed by: ? Conversion ? Report Date: ??02/15/2000 00:00 End of Report [facility] 02/11/2000 15:1 2 EST 02/11/2000 15:13 EST us Jayne Dotson MD PATHOLOGY ORDERABLES Final Resul t Performing Organization Address City/State/[facility] Co de Phone Number [facility] [address] [place] [address] documented in this encounter Visit Diagnoses Not on filedocumented in this encounter
[2024-12-22 20:39] LABS: Anion Gap 9.3 mmol/L (3-11); BUN 13 mg/dL (7-18); CO2 26.7 mmol/L (21.0-32.0); CREATININE 0.9 mg/dL (0.55-1.02); Calcium 9.6 mg/dL (8.5-10.1); Chloride 105 mmol/L (98-107); Cholesterol 317 mg/dL (<200); Estimated GFR 65.44 (mL/min/1.73m2); Glucose 110 mg/dL (74-106); HDL Cholesterol 51 mg/dL (40-60); Potassium 3.9 mmol/L (3.5-5.1); Sodium 141 mmol/L (136-145); Triglyceride 408 mg/dL (<150)
[2024-12-22 20:52] LABS: Hemoglobin A1C 5.5 % (<5.7)
[2024-12-22 20:54] LABS: LDL CHOLESTEROL 187 mg/dL (<100)
[2024-12-23 22:09] LABS: Hepatitis C Ab w Rflx HCV PCR Negative (Negative)
== END 2024-12-22 15:34 | disposition home or self-care (01) ==
LOC: NCHCN 15:33
PROVIDERS: PCP Internal Medicine; Visit Provider Internal Medicine
DX: Z11.59 Encounter for screening for other viral diseases (principal); R73.03 Prediabetes
CPT/HCPCS: 80048; 80061; 83721; 86803; 83036

== ENCOUNTER 2025-05-25 22:10 | Outpatient (REF) | payer MEDICARE, BC, SELFPAY | END 2025-05-25 22:11 | disposition home or self-care (01) | LOC: NCHCN 22:10 | PROVIDERS: PCP Internal Medicine; Visit Provider Internal Medicine | DX: R35.0 Frequency of micturition (principal) | CPT/HCPCS: 87077; 87086; 87186 ==

== ENCOUNTER 2025-08-26 18:48 | Outpatient (REF) | payer MEDICARE, BC, SELFPAY | END 2025-08-26 18:49 | disposition home or self-care (01) | LOC: NCHCN 18:48 | PROVIDERS: PCP Internal Medicine; Visit Provider Physician Assistant | DX: R30.0 Dysuria (principal) | CPT/HCPCS: 87086 ==